=== PATIENT | female | born 1945 | race Caucasian/White ===

== ENCOUNTER 2016-12-02 23:33 | Inpatient (IN) | payer MEDICARE ==
[2016-12-03] MEDS ORDERED: SODIUM CHLORIDE 0.9% 500 ML IV STA (00:34)
[2016-12-03] MEDS ORDERED: IPRATROPIUM-ALBUTEROL 3 ML NEB INHALATION STA (00:34)
[2016-12-03] MEDS ORDERED: PIPERACILLIN-TAZOBACTAM 3.375 GM in DEXTROSE/WATER 1 50ML.BAG IVPB STA (00:36)
[2016-12-03] MEDS ORDERED: methylPREDNISolone SOD SUCCI 125 MG/2 ML VIAL IV STA (00:36)
--- NOTE | 2016-12-03 00:39 | ED ---
General Adult HPI - General Chief complaint: Shortness of Breath Stated complaint: SOB/Weakness Time Seen by Provider: 12/02/16 23:35 Source: patient, EMS, RN notes reviewed Mode of arrival: EMS - History of Present Illness Initial comments: This is a 71-year-old female who presents emergency Department for generalized weakness. Patient states she was seen at [facility] earlier and we received a phone call from a physician stating that they believed she has primary lung cancer with metastatic disease. Patient comes in stating that she is generally weak and his been ongoing for approximately a week getting progressively worse. Patient denies any recent fever or chills. Patient states she does have a cough and is coughing up some sputum but that is pretty chronic for her. Patient states she's been smoking since age 14. Patient denies any chest pain or palpitations. She denies any lightheadedness dizziness or near syncopal episode. Patient denies any abdominal pain patient denies nausea vomiting. Patient states she did have diarrhea couple days ago but she has not had any in the last 2 days. Patient denies any recent injury or trauma. - Related Data Home Medications Medication Instructions Recorded Confirmed Simvastatin [Zocor] 20 mg PO HS 12/02/16 12/02/16 Temazepam [Restoril] 15 mg PO HS 12/02/16 12/02/16 amLODIPine [Norvasc] 10 mg PO DAILY 12/02/16 12/02/16 Allergies Allergy/AdvReac Type Severity Reaction Status Date / Time venom-honey bee Allergy Unknown Verified 12/02/16 23:51 Review of Systems ROS Statement: Those systems with pertinent positive or pertinent negative responses have been documented in the HPI. ROS Other: All systems not noted in ROS Statement are negative. Past Medical History Past Medical History: COPD, Hypertension Additional Past Medical History / Comment(s): SMOKES 1.5 PPD History of Any Multi-Drug Resistant Organisms: None Reported Additional Past Surgical History / Comment(s): MASS ON BREAST BONE REMOVED, UTERINE CA Past Psychological History: No Psychological Hx Reported Smoking Status: Current every day smoker Past Alcohol Use History: None Reported Past Drug Use History: None Reported General Exam - General Exam Comments Initial Comments: GENERAL: Patient is well-developed and well-nourished. Patient is nontoxic and well- hydrated and is in mild distress. Patient's pulse ox on 3 L is about 8046% while she is in bed. ENT: Neck is soft and supple. No significant lymphadenopathy is noted. Oropharynx is clear. Moist mucous membranes. Neck has full range of motion without eliciting any pain. EYES: The sclera were anicteric and conjunctiva were pink and moist. Extraocular movements were intact and pupils were equal round and reactive to light. Eyelids were unremarkable. PULMONARY: Patient has diminished breath sounds throughout with some expiratory wheezing. CARDIOVASCULAR: There is a regular rate and rhythm without any murmurs gallops or rubs. ABDOMEN: Soft and nontender with normal bowel sounds. No palpable organomegaly was noted. There is no palpable pulsatile mass. SKIN: Skin is clear with no lesions or rashes and otherwise unremarkable. NEUROLOGIC: Patient is alert and oriented x3. Cranial nerves II through XII are grossly intact. Motor and sensory are also intact. Normal speech, volume and content. Symmetrical smile. MUSCULOSKELETAL: Normal extremities with adequate strength and full range of motion. No lower extremity swelling or edema. No calf tenderness. LYMPHATICS: No significant lymphadenopathy is noted PSYCHIATRIC: Normal psychiatric evaluation. Course Vital Signs 12/02/16 12/03/16 12/03/16 23:38 00:30 00:52 Temperature 97.9 F Pulse Rate 94 94 84 Respiratory 14 18 Rate Blood Pressure 127/69 147/71 O2 Sat by Pulse 88 L 89 L Oximetry 12/03/16 12/03/16 00:59 01:36 Temperature Pulse Rate 88 91 Respiratory 16 Rate Blood Pressure 143/71 O2 Sat by Pulse 91 L Oximetry Medical Decision Making - Medical Decision Making EKG shows normal sinus rhythm at 91 bpm MD interval 132 QRS is 82 QT interval 356 QTC is 437. Patient's EKG shows some T-wave inversions in leads II, III, and F aVF which with the same on a previous EKG done earlier in the day. Patient had an elevated white count and with the changes on the CAT scan I decided to treat the patient with antibiotics I admitted the patient with Dr. Raymundo consult pulmonary and oncology. - Lab Data Result diagrams: 12/03/16 00:42 12/03/16 00:42 Lab Results 12/03/16 12/03/16 12/03/16 Range/Units 00:00 00:42 00:42 WBC 18.6 H (3.8-10.6) k/uL RBC 4.41 (3.80-5.40) m/uL Hgb 13.6 (11.4-16.0) gm/dL Hct 42.9 (34.0-46.0) % MCV 97.2 (80.0-100.0) fL MCH 30.9 (25.0-35.0) pg MCHC 31.8 (31.0-37.0) g/dL RDW 14.9 (11.5-15.5) % Plt Count 223 (150-450) k/uL Neutrophils % 89 % Lymphocytes % 2 % Monocytes % 6 % Eosinophils % 1 % Basophils % 1 % Neutrophils # 16.6 H (1.3-7.7) k/uL Lymphocytes # 0.4 L (1.0-4.8) k/uL Monocytes # 1.2 H (0-1.0) k/uL Eosinophils # 0.1 (0-0.7) k/uL Basophils # 0.2 (0-0.2) k/uL Sodium (137-145) mmol/L Potassium (3.5-5.1) mmol/L Chloride (98-107) mmol/L Carbon Dioxide (22-30) mmol/L Anion Gap mmol/L BUN (7-17) mg/dL Creatinine (0.52-1.04) mg/dL Est GFR (MDRD) Af Amer (>60 ml/min/1.73 sqM) Est GFR (MDRD) Non-Af (>60 ml/min/1.73 sqM) Glucose (74-99) mg/dL Plasma Lactic Acid Dudley 1.5 (0.7-2.0) mmol/L Calcium (8.4-10.2) mg/dL Total Bilirubin (0.2-1.3) mg/dL AST (14-36) U/L ALT (9-52) U/L Alkaline Phosphatase (38-126) U/L Total Creatine Kinase 55 (30-135) U/L CK-MB (CK-2) 2.0 (0.0-2.4) ng/mL CK-MB (CK-2) Rel Index 3.6 Troponin I 0.036 H* (0.000-0.034) ng/mL Total Protein (6.3-8.2) g/dL Albumin (3.5-5.0) g/dL 01/31/17 Range/Units 00:42 WBC (3.8-10.6) k/uL RBC (3.80-5.40) m/uL Hgb (11.4-16.0) gm/dL Hct (34.0-46.0) % MCV (80.0-100.0) fL MCH (25.0-35.0) pg MCHC (31.0-37.0) g/dL RDW (11.5-15.5) % Plt Count (150-450) k/uL Neutrophils % % Lymphocytes % % Monocytes % % Eosinophils % % Basophils % % Neutrophils # (1.3-7.7) k/uL Lymphocytes # (1.0-4.8) k/uL Monocytes # (0-1.0) k/uL Eosinophils # (0-0.7) k/uL Basophils # (0-0.2) k/uL Sodium 142 (137-145) mmol/L Potassium 3.4 L (3.5-5.1) mmol/L Chloride 104 (98-107) mmol/L Carbon Dioxide 25 (22-30) mmol/L Anion Gap 13 mmol/L BUN 33 H (7-17) mg/dL Creatinine 1.00 (0.52-1.04) mg/dL Est GFR (MDRD) Af Amer >60 (>60 ml/min/1.73 sqM) Est GFR (MDRD) Non-Af 54 (>60 ml/min/1.73 sqM) Glucose 127 H (74-99) mg/dL Plasma Lactic Acid Dudley (0.7-2.0) mmol/L Calcium 9.5 (8.4-10.2) mg/dL Total Bilirubin 1.3 (0.2-1.3) mg/dL AST 112 H (14-36) U/L ALT 148 H (9-52) U/L Alkaline Phosphatase 208 H (38-126) U/L Total Creatine Kinase (30-135) U/L CK-MB (CK-2) (0.0-2.4) ng/mL CK-MB (CK-2) Rel Index Troponin I (0.000-0.034) ng/mL Total Protein 6.7 (6.3-8.2) g/dL Albumin 3.5 (3.5-5.0) g/dL Disposition Clinical Impression: Lung mass, Pneumonia Disposition: ADMITTED IP TO THIS HOSP Time of Disposition: 01:54
[2016-12-03 00:59] LABS: Basophils # (A) 0.2 k/uL (0-0.2); Basophils % (A) 1 %; CH 31.7; CHCM 32.8; Eosinophils # (A) 0.1 k/uL (0-0.7); Eosinophils % (A) 1 %; HCT 42.9 % (34.0-46.0); HDW 2.36; HGB 13.6 gm/dL (11.4-16.0); Luc # (Auto) 0.16; Luc % (Auto) 1; Lymphocytes # (A) 0.4 k/uL (1.0-4.8); Lymphocytes % (A) 2 %; MCH 30.9 pg (25.0-35.0); MCHC 31.8 g/dL (31.0-37.0); MCV 97.2 fL (80.0-100.0); Mean Platelet Volume 8.2; Monocytes # (A) 1.2 k/uL (0-1.0); Monocytes % (A) 6 %; Neutrophils # (A) 16.6 k/uL (1.3-7.7); Neutrophils % (A) 89 %; RBC 4.41 m/uL (3.80-5.40); RDW 14.9 % (11.5-15.5); WBC 18.6 k/uL (3.8-10.6); WBC (Perox) 18.93
[2016-12-03 01:10] LABS: ALT 148 U/L (9-52); AST 112 U/L (14-36); Alkaline Phosphatase 208 U/L (38-126); Anion Gap 13 mmol/L; Blood Urea Nitrogen 33 mg/dL (7-17); Calcium 9.5 mg/dL (8.4-10.2); Carbon Dioxide 25 mmol/L (22-30); Chloride 104 mmol/L (98-107); Glucose 127 mg/dL (74-99); Non-African American GFR(MDRD) 54 (>60 ml/min/1.73 sqM); Potassium 3.4 mmol/L (3.5-5.1); Sodium 142 mmol/L (137-145); Total Bilirubin 1.3 mg/dL (0.2-1.3); Total Protein 6.7 g/dL (6.3-8.2)
[2016-12-03] MEDS ORDERED: SODIUM CHLORIDE 0.9% 500 ML IV ONE (01:29)
[2016-12-03 01:34] LABS: Troponin I 0.036 ng/mL (0.000-0.034)
[2016-12-03] MEDS ORDERED: PNEUMONIA PROTOCOL UTILIZED 1 EACH MISC PO PRN (01:55)
[2016-12-03] MEDS ORDERED: LEVOFLOXACIN 750MG-D5W PMX 750 MG in DEXTROSE/WATER 1 150ML.BAG IVPB STA (01:55)
[2016-12-03] MEDS ORDERED: HYDROcodone/APAP 5-325MG 1 EACH TAB PO PRN (03:47)
[2016-12-03] MEDS: IPRATROPIUM-ALBUTEROL 3 ML NEB INHALATION PRN (04:00)
[2016-12-03] MEDS: ALPRAZolam 0.25 MG TAB PO PRN (04:09)
[2016-12-03 06:44] LABS: Glucose,Whole Blood 126 mg/dL (75-99)
[2016-12-03] MEDS: INSULIN LISPRO (humaLOG) 300 UNIT/3 ML VIAL SQ SCH ×4 (06:54→21:54)
[2016-12-03] MEDS: methylPREDNISolone SOD SUCCI 125 MG/2 ML VIAL IV SCH ×4 (06:56→22:46)
[2016-12-03] MEDS ORDERED: PIPERACILLIN-TAZOBACTAM 3.375 GM in DEXTROSE/WATER 1 50ML.BAG IVPB SCH (08:00)
[2016-12-03] MEDS ORDERED: amLODIPine 10 MG TAB PO SCH (09:00)
[2016-12-03] MEDS ORDERED: RX INFO: IV CONTRAST WAS GIVEN 1 EACH MISC MISCELLANE PRN (09:25)
[2016-12-03] MEDS: IOHEXOL 350 MG/ML 25 ML BOTTLE (ORAL USE) PO PRN ×2 (10:03→11:01)
[2016-12-03 11:35] VITALS: BMI 20.6
--- NOTE | 2016-12-03 11:36 | P.CNPUL ---
History of Present Illness Consult date: 12/03/16 Reason for consult: lung mass History of present illness: This is a 71-year-old female patient was initially taken to [facility] for generalized body weakness and some shortness of breath. As part of further investigation a CAT scan of the chest was done that showed a left lower lobe/left perihilar pulmonary mass along with mediastinal lymphadenopathy and multifocal left lower lobe lung as pulmonary infiltrates and nodules. There is narrowing of the left lower lobe bronchus. This was very suspicious for an underlying malignancy. In addition, the CAT scan showed a large axillary lymph node and multiple subcutaneous nodules of the breast and superficial to the left scapula raising the concern for possible metastases. There was also some abdominal lymphadenopathy noted. Based on all this, the patient was transferred to [facility] for further investigation with the intention of her having a biopsy for tissue confirmation. 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 She also has a remote history of uterine cancer and she is post-hysterectomy. She smokes a one half pack of cigarettes a day and she has an underlying COPD. Clinically the patient remains very weak. Her appetite is poor. She has no weight loss. She was having exertional dyspnea. No hemoptysis.On examination, the patient was found to have firm nodes or masses over the anterior abdominal wall and I couldn't palpate at least 3 large firm masses that are stuck to the abdominal wall and the abdomen apparently growing over the past few weeks. The patient also has a right axillary mass/lymph node that can be palpated. 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 History of Any Multi-Drug Resistant Organisms: None Reported Past Surgical History: Hysterectomy Additional Past Surgical History / Comment(s): Mediastinal mass removal possibly resection of a thymoma and hysterectomy Additional Past Anesthesia/Blood Transfusion Reaction / Comment(s): no history blood transfusion Past Psychological History: No Psychological Hx Reported Smoking Status: Current every day smoker (1.5 pack per day and she has been smoking since the age 14, no alcoholism and no IVDA) Past Alcohol Use History: None Reported Past Drug Use History: None Reported - Past Family History Father Family Medical History: No Reported History Mother Family Medical History: Unable to Obtain Medications and Allergies Home Medications Medication Instructions Recorded Confirmed Type Simvastatin [Zocor] 20 mg PO HS 12/02/16 12/02/16 History Temazepam [Restoril] 15 mg PO HS 12/02/16 12/02/16 History amLODIPine [Norvasc] 10 mg PO DAILY 12/02/16 12/02/16 History Allergies Allergy/AdvReac Type Severity Reaction Status Date / Time venom-honey bee Allergy Unknown Verified 12/02/16 23:51 Physical Exam Vitals: Vital Signs Temp Pulse Pulse Resp BP BP Pulse Ox 12/03/16 08:00 97.0 F L 82 16 133/68 96 12/03/16 04:12 80 12/03/16 04:00 88 90 16 12/03/16 02:46 95 16 148/79 96 12/03/16 02:09 97.3 F L 90 16 125/81 92 L Intake and Output 12/02/16 12/03/16 12/03/16 22:59 06:59 14:59 Intake Total 120 Output Total 1200 Balance -1200 120 Intake: Oral 120 Output: Urine 1200 Other: Voiding Method Bedside Commode Bedside Commode # Voids 0 Weight 51.2 kg Head exam was generally normal. There was no scleral icterus or corneal arcus. Mucous membranes were moist.Neck was supple and without jugular venous distension, thyromegaly, or carotid bruits. Carotids were easily palpable bilaterally. There was no adenopathy. The patient has a firm right axillary lymph node that can be easily palpated that is measuring approximately 2 cm in size. Lung sounds are diminished bilaterally and there is no wheezes overall currently crackles.Cardiac exam revealed the PMI to be normally situated and sized. The rhythm was regular and no extrasystoles were noted during several minutes of auscultation. The first and second heart sounds were normal and physiologic splitting of the second heart sound was noted. There were no murmurs , rubs, clicks, or gallops. Abdominal wall reveals firm masses that are as large as 3-4 cm in size and they are nonpainful urine stuck over the anterior abdominal wall and these are probably metastatic lesions to the abdominal wall. The patient has no significant organomegaly. No direct tenderness. No rebound tenderness or guarding.Examination of the extremities revealed easily palpable radial, femoral and pedal pulses. There was no cyanosis, clubbing or edema. Results - Laboratory Findings CBC and BMP: 12/03/16 00:42 12/03/16 00:42 Abnormal lab findings: Abnormal Labs 12/03/16 06:43 POC Glucose (mg/dL) 126 H - Diagnostic Findings CT scan - chest: image reviewed Assessment and Plan Plan: Impression 1 metastatic cancer probably of a lung origin and I suspect this may be probably a small cell type. The patient has a left infrahilar mass with mediastinal lymphadenopathy, axillary lymphadenopathy and anterior abdominal wall wall masses that are quite multiple and accessible for biopsy. 2 COPD 3 questionable history of thymoma, status post resection 4 uterine cancer status post hysterectomy 5 hypertension 6 hyperlipidemia 7 generalized debility, weakness, difficulty with mobility, probably all related to underlying metastatic carcinoma Plan We will proceed with a surgical consultation to obtain a tissue diagnosis. The most accessible lesions on the 1 over the anterior abdominal wall and I will ask the surgeon to resect one of these lesions to establish tissue diagnosis. The patient will have also CAT scan of the abdomen and pelvis. Oncology consultation. We'll continue to follow.
[2016-12-03 11:47] LABS: Glucose,Whole Blood 187 mg/dL (75-99)
[2016-12-03 12:18] LABS: Hemoglobin A1C 5.8 % (4.2-6.1)
--- NOTE | 2016-12-03 12:36 | CT ---
EXAMINATION TYPE: CT brain w con DATE OF EXAM: 12/03/2016 12:20 PM COMPARISON: NONE HISTORY: Lung mass, mets CT DLP: 1073 mGycm Automated exposure control for dose reduction was used. CONTRAST: CT scan of the head is performed with IV Contrast, patient injected with 100 ml mL of Omnipaque 300. FINDINGS: There is no abnormal enhancing mass or midline shift identified. Moderate degenerative change. Areas of low attenuation within the white matter are nonspecific but most typical remote microvascula r ischemia. No enhancing mass. There is linear enhancement within the right parietal lobe axial image 33 which may be gyral. Cannot exclude a tiny area of hemorrhage however this is felt less likely. There also appears be a nodular area of enhancement near the corpus callosum within the right occipit al lobe measuring 7 mm. This could represent a meningioma or metastasis. Changes of chronic mastoiditis are noted and sinusitis. IMPRESSION: 1. 7 mm nodular area of enhancement within the right occipital lobe adjacent to the splenium of the c orpus callosum. This could be extradural represent small meningioma or metastasis. Additionally there is vague linear enhancement in the right parietal lobe image 33. This could be meningeal or leptomen ingeal. See above. Recommend MRI to assess for possible underlying metastases.
--- NOTE | 2016-12-03 12:46 | CT ---
EXAMINATION TYPE: CT abdomen pelvis w con DATE OF EXAM: 12/03/2016 12:20 PM COMPARISON: NONE HISTORY: Lung mass, mets CT DLP: 887 mGycm Automated exposure control for dose reduction was used. CONTRAST: CT scan of the abdomen pelvis is performed with IV Contrast, patient injected with 80 ml mL of Visipa que 320. FINDINGS- LUNG BASES-near the diaphragm there appears be a small amount of pericardial fluid. Subsegmental atel ectasis at both lung bases with tiny effusions. LIVER/GB-there are numerous ill-defined areas of nodular enhancement throughout the liver involving a ll lobes and segments. The largest within the left lobe measures approximately 3 x 3 cm and within th e right lobe measures approximately 3.8 x 3.5 cm.. PANCREAS- No gross abnormality is seen. SPLEEN- No gross abnormality is seen. ADRENALS- No gross abnormality is seen. KIDNEYS/BLADDER-renal cortex is lobulated bilaterally. There is a 1 cm hypodense lesion which does no t meet the criteria of simple cyst within the left kidney.. BOWEL- no bowel dilatation. Normal appendix. LYMPH NODES-shotty adenopathy is seen in the periaortic region image 20 to the left there appear to b e additional areas of nodular enhancement along the spleen suspicious for adenopathy measuring 1 cm. Adenopathy within the raj hepatis is also suspected. Short axis measurement of 8 mm. Head of the pa ncreas is prominent OSSEOUS STRUCTURES-multilevel severe degenerative disc disease and facet arthropathy with grade 1 ant erolisthesis L4 relative to L5. Foraminal encroachment and canal stenosis suspected. OTHER- there are numerous subcutaneous enhancing nodules along the anterior abdominal wall with the largest measuring 2 cm suspicious for metastases. One anterior margin of the liver on axial image 25 there is a 1.5 cm enhancing nodule suspicious for a peritoneal implant. There is a small amount of ascites adjacent to the liver. Within the left adnexa there is a cystic le eliecer measuring 2.7 cm. Uterus is absent. If the ovary was left behind postoperatively could represent a cyst of the ovary otherwise consider cystic dilation of the fallopian tube remnant or paraovarian cyst. There is extensive atherosclerotic change of the aorta with significant stenosis suspected invo lving the SMA and celiac artery correlate clinically. There is localized ectasia of the abdominal aorta focally. IMPRESSION- 1. Numerous findings suggestive of widespread metastases. Hepatic and intra-abdominal as well as subc utaneous metastases are seen diffusely as discussed above. See above. 2. Prominence of the pancreatic head without evidence of discrete mass correlate clinically.
[2016-12-03] MEDS ORDERED: LIDOCAINE 2% INJ 20 MG/ML (20 ML MDV) ONE (13:10)
--- NOTE | 2016-12-03 13:48 | P.GSCN ---
History of Present Illness Consult date: 12/03/16 Reason for Consult: Abdominal wall mass History of present illness: Patient was admitted to the hospital with a lung mass in subcutaneous nodules. She has a history of previous smoking. We're asked to see this patient for biopsy. She says these masses have been present over the last 3-4 weeks and increasing in size. They are painful at times. 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 History of Any Multi-Drug Resistant Organisms: None Reported Past Surgical History: Hysterectomy Additional Past Surgical History / Comment(s): Mediastinal mass removal possibly resection of a thymoma and hysterectomy Additional Past Anesthesia/Blood Transfusion Reaction / Comm: no history blood transfusion Past Psychological History: No Psychological Hx Reported Smoking Status: Current every day smoker (1.5 pack per day and she has been smoking since the age 14, no alcoholism and no IVDA) Past Alcohol Use History: None Reported Past Drug Use History: None Reported - Past Family History Father Family Medical History: No Reported History Mother Family Medical History: Unable to Obtain Medications and Allergies Home Medications Medication Instructions Recorded Confirmed Type Simvastatin [Zocor] 20 mg PO HS 12/02/16 12/02/16 History Temazepam [Restoril] 15 mg PO HS 12/02/16 12/02/16 History amLODIPine [Norvasc] 10 mg PO DAILY 12/02/16 12/02/16 History Allergies Allergy/AdvReac Type Severity Reaction Status Date / Time venom-honey bee Allergy Unknown Verified 12/02/16 23:51 Surgical - Exam Vital Signs Temp Pulse Resp BP Pulse Ox 97.9 F 94 14 127/69 88 L 12/02/16 23:38 12/02/16 23:38 12/02/16 23:38 12/02/16 23:38 12/02/16 23:38 Physical exam: General: Elderly white female somewhat malnourished appearing HEENT: Normocephalic, sclerae nonicteric Abdomen: Nontender, nondistended, multiple small subcutaneous nodules largest one present in the midabdomen supra umbilical measuring 3 cm Extremities: No edema, right axillary nodule Neuro: Alert and oriented Results - Labs 12/03/16 00:42 12/03/16 00:42 Abnormal Lab Results - Last 24 Hours (Table) 12/03/16 12/03/16 Range/Units 06:43 11:34 POC Glucose (mg/dL) 126 H 187 H (75-99) mg/dL Assessment and Plan (1) Subcutaneous nodules Narrative/Plan: Will proceed with biopsy at the bedside. Status: Acute
--- NOTE | 2016-12-03 13:49 | P.PCN ---
Date of Procedure: 12/03/16 Procedure(s) Performed: PREOPERATIVE DIAGNOSIS: Abdominal wall nodule POSTOPERATIVE DIAGNOSIS: Same PROCEDURE: Punch biopsy SURGEON: Derick EBL: 1 mL ANESTHESIA: Local COMPLICATIONS: None OPERATIVE PROCEDURE: The skin was prepped with Betadine. The skin was localized with 1% lidocaine. A 3 mm punch biopsy was taken. The mass was necrotic. Portions of the tissue were sent in formalin to lab. The incision site was closed using a single 4-0 nylon stitch. DISPOSITION: Stable
[2016-12-03 14:05] LABS: Appearance,Urine Clear (Clear); Bilirubin,Urine Negative (Negative); Glucose,Urine (UA) 2+ (Negative); Ketones,Urine Negative (Negative); Leukocyte Esterase,Urine Moderate (Negative); Mucus,Urine Rare /hpf; Nitrite,Urine Negative (Negative); PH, Urine 6.5 (5.0-8.0); Particle Count 2711; Protein,Urine Trace (Negative); RBC,Urine 3 /hpf (0-5); Squamous Epithelial Cell,Urine 2 /hpf (0-4); UA Billing (MACRO vs. MICRO) MICRO; Urobilinogen,Urine <2.0 mg/dL (<2.0); WBC,Urine 11 /hpf (0-5)
--- NOTE | 2016-12-03 16:46 | P.CONS ---
History of Present Illness - Reason for Consult Consult date: 12/03/16 lung mass Requesting physician: Morgan Rubio - Chief Complaint SOB - History of Present Illness Pt is a very pleasant 71 year old female who has had progressive SOB for 1 year, worse the last month, she was recently seen at [facility] and states she was called and told to come to the hospital as she may have a spread cancer. Pt denies wt. loss, she states she has her appetite back, denies dysphagia, she was not on O2 at home, she is currently comfortable with O2 on, denies chest pain, pleuritic chest pain, nausea, abd pain or bloating, acute changes in bowel or bladder habits, she is independent in ADLs. She has had skin nodules, started few months ago, they are not painful. SHe has a history of uterine cancer treated 40 years ago with surgery, no chemo or radiation, she had a skin cancer on her legs about 7-8 years ago, treated with topicals, and she had a cancer "scrapped" off of her sternum about 5 years ago. She denies any other acute changes in her health. Review of Systems All systems: negative Constitutional: Reports as per HPI Past Medical History Past Medical History: Cancer, COPD, Hypertension, Pneumonia Additional Past Medical History / Comment(s): SMOKES 1.5 PPD History of Any Multi-Drug Resistant Organisms: None Reported Past Surgical History: Hysterectomy Additional Past Surgical History / Comment(s): MASS ON BREAST BONE REMOVED, UTERINE CA Additional Past Anesthesia/Blood Transfusion Reaction / Comm: no history blood transfusion Past Psychological History: No Psychological Hx Reported Smoking Status: Current every day smoker Past Alcohol Use History: None Reported Past Drug Use History: None Reported - Past Family History Father Family Medical History: No Reported History Mother Family Medical History: Unable to Obtain Medications and Allergies Home Medications Medication Instructions Recorded Confirmed Type Simvastatin [Zocor] 20 mg PO HS 12/02/16 12/02/16 History Temazepam [Restoril] 15 mg PO HS 12/02/16 12/02/16 History amLODIPine [Norvasc] 10 mg PO DAILY 12/02/16 12/02/16 History Allergies Allergy/AdvReac Type Severity Reaction Status Date / Time venom-honey bee Allergy Unknown Verified 12/02/16 23:51 Physical Exam Vitals: Vital Signs Temp Pulse Pulse Resp BP BP Pulse Ox 12/03/16 04:12 80 12/03/16 04:00 88 90 16 12/03/16 02:46 95 16 148/79 96 12/03/16 02:09 97.3 F L 90 16 125/81 92 L Intake and Output 12/02/16 12/03/16 12/03/16 22:59 06:59 14:59 Intake Total 120 Output Total 1200 Balance -1200 120 Intake: Oral 120 Output: Urine 1200 Other: Voiding Method Bedside Commode # Voids 0 Weight 51.2 kg - Constitutional General appearance: cooperative, mild distress, thin - EENT Eyes: anicteric sclerae, normal appearance ENT: normal oropharynx - Neck Neck: lymphadenopathy - Respiratory Respiratory: bilateral: wheezing (audible) - Cardiovascular Heart sounds: normal: S1, S2 - Gastrointestinal General gastrointestinal: soft Localized gastrointestinal: tender: RUQ, RLQ - Integumentary multiple skin nodules, mobile, smooth contour, not painful, left clavicle, multiple on abd, 2.5-3cm. Integumentary: pale - Neurologic Neurologic: CNII-XII intact - Musculoskeletal Musculoskeletal: strength equal bilaterally - Psychiatric difficulty recalling personal medical history Psychiatric: A&O x's 3, appropriate affect, intact judgment & insight Results CBC & Chem 7: 12/03/16 00:42 12/03/16 00:42 Labs: Abnormal Lab Results - Last 24 Hours (Table) 12/03/16 Range/Units 06:43 POC Glucose (mg/dL) 126 H (75-99) mg/dL Comments: paper chart and EMR reviewed CT chest report from [facility] reviewed Assessment and Plan (1) Subcutaneous nodules Narrative/Plan: Surgery consulted for excisional biopsy, await pathology Status: Acute (2) Lung mass Narrative/Plan: Pulmonary consulted, await recommendations re: biopsy Status: Acute Plan: Pt presentation is unique, 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 Recommendation if for both an excisional biopsy of one of the SQ nodules as well as lung biopsy as pt may have 2 primaries. Will await Surgical and Pulmonary consults.
[2016-12-03 17:17] LABS: Glucose,Whole Blood 115 mg/dL (75-99)
--- NOTE | 2016-12-03 20:41 | HP ---
DATE OF ADMISSION: Patient is a 71-year-old transfer from [employer] who presented with shortness of breath. Patient denied any significant amount of cough. Patient is unable to cough up anything. Patient had a left lower lobe perihilar pulmonary mass, mediastinal lymphadenopathy, because of which patient underwent CT scan of the abdomen and pelvis here which showed multiple metastatic lesions consistent with metastatic disease. Patient denied any fever or chills. Patient had leukocytosis. Denied any fever. Patient is on Zosyn, levofloxacin. I believe it is not necessary ( ) at this point of time patient denied any dysuria. Patient had significant lymphadenopathy, abdominal as well as axillary lymphadenopathy, because of which patient underwent biopsy of those lymph nodes ( ) was done which showed a couple lesions, one in the parietal lobe and one in the right occipital lobe. Patient denied any symptoms of visual problems, although patient does have generalized weakness. Denied any focal weakness. Patient received systemic steroids here. Patient is on 8 liters of oxygen; does not use any oxygen at home. Patient saw a physician for the first time a few days ago. The abdominal masses and axillary mass are not hard but firm. REVIEW OF SYSTEMS: CONSTITUTIONAL: No fever, no malaise, no fatigue. HEENT: No recent visual problems or hearing problems. Denied any sore throat. CARDIOVASCULAR: No chest pain, orthopnea, PND, no palpitations, no syncope. PULMONARY: As described in HPI. GASTROINTESTINAL: No diarrhea, no nausea, no vomiting, no abdominal pain. Normoactive bowel sounds. NEUROLOGICAL: No headaches, no weakness, no numbness. HEMATOLOGICAL: Denies any bleeding or petechiae. GENITOURINARY: Denies any burning micturition, frequency, or urgency. MUSCULOSKELETAL/RHEUMATOLOGICAL: Denies any joint pain, swelling, or any muscle pain. ENDOCRINE: Denies any polyuria or polydipsia. The rest of the 14 point review of systems is negative. Past medical history is significant for: 1. Uterine cancer. 2. COPD. 3. Hypertension. 4. Hyperlipidemia. 5. Thymoma. 6. Patient had a mediastinal mass that was dissected. PAST SURGICAL HISTORY: Hysterectomy. FAMILY HISTORY: Denied any family history of hypertension or diabetes mellitus. HOME MEDICATIONS: 1. Simvastatin. 2. Temazepam. 3. Amlodipine. ALLERGIES: BEE VENOM. PHYSICAL EXAMINATION: VITAL SIGNS: Temperature 97.0, pulse of 82, respiratory rate of 16. Blood pressure is 133/68. Saturating at 96% on room air. GENERAL: The patient is alert and oriented x3, not in any acute distress. Well developed, well nourished. HEENT: Pupils are round and equally reacting to light. EOMI. No scleral icterus. No conjunctival pallor. Normocephalic, atraumatic. No pharyngeal erythema. No thyromegaly. CARDIOVASCULAR: S1 and S2 present. No murmurs, rubs, or gallops. PULMONARY: The patient has fairly good air entry in bilateral lung rubalcava. I did not hear any wheezing or crackles that I can appreciate. Patient has some firm nodes in the superficial abdominal wall ( ) big firm mass in the right axilla. ABDOMEN: Soft, nontender, nondistended, normoactive bowel sounds. No palpable organomegaly. MUSCULOSKELETAL: No joint swelling or deformity. EXTREMITIES: No cyanosis, clubbing, or pedal edema. NEUROLOGICAL: Gross neurological examination did not reveal any focal deficits. SKIN: No rashes. LABORATORY DATA: CBC, CMP are abnormal for elevated WBC count of 18,600, ( ) potassium of 3.4. Abdominal CT as mentioned above. Abdominal CT is also consistent with possibility of pancreatic head lesion. ASSESSMENT AND PLAN: 1. Shortness of breath, probably due to chronic obstructive pulmonary disease exacerbation. Patient probably has acute hypercapnic respiratory failure. Patient is on systemic steroids ( ) 2. Possible metastatic cancer. Primary is unknown. Awaiting biopsy. Patient underwent biopsy of the subcutaneous lesions. 3. 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 Oncology was consulted. Patient is already on systemic steroids, because of which I ( ) start her on Decadron at this point of time, although patient does not have any symptoms. 4. Generalized weakness and cachexia from probable cancer and metastatic disease. 5. History of thymoma. 6. Hypertension. 7. Hyperlipidemia, for which I will go ahead and continue home medications for above-mentioned chronic medical problems. 8 Mild protein calorie malnutrition. My suspicion is low for a pneumonic process, because of which I will continue Zosyn. After discussing with Pulmonary, probably levofloxacin can be discontinued as well. For hypokalemia, potassium supplements. MTDD
[2016-12-03] MEDS ORDERED: TEMAZEPAM 15 MG CAP PO SCH (21:00)
[2016-12-03 21:11] LABS: Glucose,Whole Blood 158 mg/dL (75-99)
[2016-12-03] MEDS ORDERED: POTASSIUM CHLORIDE ER 20 MEQ TAB.ER PO STA (21:32)
[2016-12-03] MEDS: ATORVASTATIN 10 MG TAB PO SCH (21:53)
[2016-12-03] MEDS ORDERED: POTASSIUM CHLORIDE ER 20 MEQ TAB.ER PO ONE (23:00)
[2016-12-04] MEDS: INSULIN LISPRO (humaLOG) 300 UNIT/3 ML VIAL SQ SCH ×4 (06:06→21:16)
[2016-12-04 06:07] LABS: Glucose,Whole Blood 113 mg/dL (75-99)
[2016-12-04] MEDS: methylPREDNISolone SOD SUCCI 125 MG/2 ML VIAL IV SCH ×3 (06:18→17:22)
[2016-12-04 06:19] LABS: CH 31.1; CHCM 31.3; HCT 36.3 % (34.0-46.0); HGB 11.5 gm/dL (11.4-16.0); MCH 31.6 pg (25.0-35.0); MCHC 31.5 g/dL (31.0-37.0); MCV 100.1 fL (80.0-100.0); Macrocytosis Slight; Mean Platelet Volume 7.9; RBC 3.63 m/uL (3.80-5.40); WBC 18.1 k/uL (3.8-10.6)
[2016-12-04 06:41] LABS: Anion Gap 6 mmol/L; Blood Urea Nitrogen 24 mg/dL (7-17); Calcium 8.8 mg/dL (8.4-10.2); Carbon Dioxide 28 mmol/L (22-30); Chloride 108 mmol/L (98-107); Glucose 114 mg/dL (74-99); Non-African American GFR(MDRD) >60 (>60 ml/min/1.73 sqM); Potassium 5.1 mmol/L (3.5-5.1); Sodium 142 mmol/L (137-145)
[2016-12-04] MEDS ORDERED: LEVOFLOXACIN 750MG-D5W PMX 750 MG in DEXTROSE/WATER 1 150ML.BAG IVPB SCH (08:00)
[2016-12-04] MEDS: IPRATROPIUM-ALBUTEROL 3 ML NEB INHALATION PRN (09:14)
[2016-12-04 11:34] LABS: Glucose,Whole Blood 155 mg/dL (75-99)
--- NOTE | 2016-12-04 11:52 | P.PN ---
Subjective Principal diagnosis: Abdominal wall nodule Patient without new complaints. Denies abdominal pain. Shortness of breath is improved Objective - Vital Signs Vital signs: Vital Signs Temp 97.0 F L 12/04/16 08:00 Pulse 76 12/04/16 09:25 Resp 22 12/04/16 08:00 BP 100/58 12/04/16 08:00 Pulse Ox 98 12/04/16 08:00 Intake & Output 12/03/16 12/04/16 12/04/16 18:59 06:59 18:59 Intake Total 1690 100 630 Output Total 90 690 Balance 1600 -590 630 Weight 51.2 kg 51.4 kg Intake: Intake, IV Titration 210 150 Amount Levofloxacin 750Mg-D5w 150 150 Pmx 750 mg In Dextrose/ Water 1 150ml.bag @ 100 mls/hr IVPB Q24H [facility] Rx#: [id number] Piperacillin-Tazobactam 3 60 .375 gm In Dextrose/Water 1 50ml.bag @ 12.5 mls/hr IVPB [facility] Rx#: [id number] Oral 1480 100 480 Output: Urine 90 690 Other: Voiding Method Bedside Commode Bedside Commode Bedside Commode # Voids 0 1 # Bowel Movements 0 0 0 - Exam Abdomen: Soft, nondistended, dressing intact, no bleeding - Labs CBC & Chem 7: 12/04/16 05:54 12/04/16 05:54 Labs: Abnormal Lab Results - Last 24 Hours (Table) 12/03/16 12/03/16 12/03/16 Range/Units 12:00 16:50 21:10 WBC (3.8-10.6) k/uL RBC (3.80-5.40) m/uL MCV (80.0-100.0) fL Chloride (98-107) mmol/L BUN (7-17) mg/dL Glucose (74-99) mg/dL POC Glucose (mg/dL) 115 H 158 H (75-99) mg/dL Ur Specific [place] 1.050 H (1.001-1.035) Urine Protein Trace H (Negative) Urine Glucose (UA) 2+ H (Negative) Ur Leukocyte Esterase Moderate H (Negative) Urine WBC 11 H (0-5) /hpf Urine Mucus Rare H (None) /hpf 12/04/16 12/04/16 12/04/16 Range/Units 05:54 05:54 05:58 WBC 18.1 H (3.8-10.6) k/uL RBC 3.63 L (3.80-5.40) m/uL MCV 100.1 H (80.0-100.0) fL Chloride 108 H (98-107) mmol/L BUN 24 H (7-17) mg/dL Glucose 114 H (74-99) mg/dL POC Glucose (mg/dL) 113 H (75-99) mg/dL Ur Specific [place] (1.001-1.035) Urine Protein (Negative) Urine Glucose (UA) (Negative) Ur Leukocyte Esterase (Negative) Urine WBC (0-5) /hpf Urine Mucus (None) /hpf 12/04/16 Range/Units 11:33 WBC (3.8-10.6) k/uL RBC (3.80-5.40) m/uL MCV (80.0-100.0) fL Chloride (98-107) mmol/L BUN (7-17) mg/dL Glucose (74-99) mg/dL POC Glucose (mg/dL) 155 H (75-99) mg/dL Ur Specific [place] (1.001-1.035) Urine Protein (Negative) Urine Glucose (UA) (Negative) Ur Leukocyte Esterase (Negative) Urine WBC (0-5) /hpf Urine Mucus (None) /hpf Assessment and Plan (1) Subcutaneous nodules Narrative/Plan: Await final pathology from recent punch biopsy Status: Acute
--- NOTE | 2016-12-04 14:46 | XR ---
EXAMINATION TYPE: XR chest 2V DATE OF EXAM: 12/04/2016 2:40 PM COMPARISON: Chest x-ray September 30, 2010. Outside chest x-ray and CT chest December 02, 2016 HISTORY: Pneumonia progress study TECHNIQUE: Frontal and lateral views of the chest are obtained. FINDINGS: Sternal wires and mediastinal clips are redemonstrated. There is underlying emphysematous c hange. There is suspicious left hilar masslike consolidation worrisome for neoplasm. There are new sm all bilateral pleural effusions with blunting of posterior costophrenic angles. No pneumothorax is se en bilaterally. Cardiac silhouette size is stable and within normal limits with atherosclerotic thora cic aorta. Osseous structures are demineralized. IMPRESSION: Chronic emphysematous change with new tiny bilateral pleural effusions. Worrisome left hilar masslike consolidation in which neoplasm needs to be favored.
--- NOTE | 2016-12-04 15:07 | P.PN ---
Subjective This is a 71-year-old female patient was initially taken to [facility] for generalized body weakness and some shortness of breath. As part of further investigation a CAT scan of the chest was done that showed a left lower lobe/left perihilar pulmonary mass along with mediastinal lymphadenopathy and multifocal left lower lobe lung as pulmonary infiltrates and nodules. There is narrowing of the left lower lobe bronchus. This was very suspicious for an underlying malignancy. In addition, the CAT scan showed a large axillary lymph node and multiple subcutaneous nodules of the breast and superficial to the left scapula raising the concern for possible metastases. There was also some abdominal lymphadenopathy noted. Based on all this, the patient was transferred to [facility] for further investigation with the intention of her having a biopsy for tissue confirmation. 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 She also has a remote history of uterine cancer and she is post-hysterectomy. She smokes a one half pack of cigarettes a day and she has an underlying COPD. Clinically the patient remains very weak. Her appetite is poor. She has no weight loss. She was having exertional dyspnea. No hemoptysis.On examination, the patient was found to have firm nodes or masses over the anterior abdominal wall and I couldn't palpate at least 3 large firm masses that are stuck to the abdominal wall and the abdomen apparently growing over the past few weeks. The patient also has a right axillary mass/lymph node that can be palpated. On 12/04/2016 the patient is being seen in follow-up. As suspected the patient has metastatic carcinoma and we have recommended biopsy of the abdominal masses. The patient underwent a punch biopsy of the mass at the bedside today by the general surgeon. The final path is still pending. Meanwhile the patient does not have any major surgery distress pH is having some late lunch at this point. Hemodynamically stable. No other significant events otherwise over the past 24 hours. We are still waiting for the biopsy. I think the patient can be transferred to oncology floor. Objective - Vital Signs Vital signs: Vital Signs Temp 97.9 F 12/04/16 12:00 Pulse 88 12/04/16 12:00 Resp 18 12/04/16 12:00 BP 99/52 12/04/16 12:00 Pulse Ox 100 12/04/16 12:00 Intake & Output 12/03/16 12/04/16 12/04/16 18:59 06:59 18:59 Intake Total 1690 100 867 Output Total 90 690 Balance 1600 -590 867 Weight 51.2 kg 51.4 kg Intake: Intake, IV Titration 210 150 Amount Levofloxacin 750Mg-D5w 150 150 Pmx 750 mg In Dextrose/ Water 1 150ml.bag @ 100 mls/hr IVPB Q24H [facility] Rx#: [id number] Piperacillin-Tazobactam 3 60 .375 gm In Dextrose/Water 1 50ml.bag @ 12.5 mls/hr IVPB ONCE [facility] Rx#: [id number] Oral 1480 100 717 Output: Urine 90 690 Other: Voiding Method Bedside Commode Bedside Commode Bedside Commode # Voids 0 1 # Bowel Movements 0 0 0 - Exam Head exam was generally normal. There was no scleral icterus or corneal arcus. Mucous membranes were moist.Neck was supple and without jugular venous distension, thyromegaly, or carotid bruits. Carotids were easily palpable bilaterally. There was no adenopathy. The patient has a firm right axillary lymph node that can be easily palpated that is measuring approximately 2 cm in size. Lung sounds are diminished bilaterally and there is no wheezes overall currently crackles.Cardiac exam revealed the PMI to be normally situated and sized. The rhythm was regular and no extrasystoles were noted during several minutes of auscultation. The first and second heart sounds were normal and physiologic splitting of the second heart sound was noted. There were no murmurs , rubs, clicks, or gallops. Abdominal wall reveals firm masses that are as large as 3-4 cm in size and they are nonpainful urine stuck over the anterior abdominal wall and these are probably metastatic lesions to the abdominal wall. The patient has no significant organomegaly. No direct tenderness. No rebound tenderness or guarding.Examination of the extremities revealed easily palpable radial, femoral and pedal pulses. There was no cyanosis, clubbing or edema. - Labs CBC & Chem 7: 12/04/16 05:54 12/04/16 05:54 Labs: Abnormal Lab Results - Last 24 Hours (Table) 12/03/16 12/03/16 12/03/16 Range/Units 12:00 16:50 21:10 WBC (3.8-10.6) k/uL RBC (3.80-5.40) m/uL MCV (80.0-100.0) fL Chloride (98-107) mmol/L BUN (7-17) mg/dL Glucose (74-99) mg/dL POC Glucose (mg/dL) 115 H 158 H (75-99) mg/dL Ur Specific [place] 1.050 H (1.001-1.035) Urine Protein Trace H (Negative) Urine Glucose (UA) 2+ H (Negative) Ur Leukocyte Esterase Moderate H (Negative) Urine WBC 11 H (0-5) /hpf Urine Mucus Rare H (None) /hpf 12/04/16 12/04/16 12/04/16 Range/Units 05:54 05:54 05:58 WBC 18.1 H (3.8-10.6) k/uL RBC 3.63 L (3.80-5.40) m/uL MCV 100.1 H (80.0-100.0) fL Chloride 108 H (98-107) mmol/L BUN 24 H (7-17) mg/dL Glucose 114 H (74-99) mg/dL POC Glucose (mg/dL) 113 H (75-99) mg/dL Ur Specific [place] (1.001-1.035) Urine Protein (Negative) Urine Glucose (UA) (Negative) Ur Leukocyte Esterase (Negative) Urine WBC (0-5) /hpf Urine Mucus (None) /hpf 12/04/16 Range/Units 11:33 WBC (3.8-10.6) k/uL RBC (3.80-5.40) m/uL MCV (80.0-100.0) fL Chloride (98-107) mmol/L BUN (7-17) mg/dL Glucose (74-99) mg/dL POC Glucose (mg/dL) 155 H (75-99) mg/dL Ur Specific [place] (1.001-1.035) Urine Protein (Negative) Urine Glucose (UA) (Negative) Ur Leukocyte Esterase (Negative) Urine WBC (0-5) /hpf Urine Mucus (None) /hpf Assessment and Plan Plan: Impression 1 metastatic cancer probably of a lung origin and I suspect this may be probably a small cell type. The patient has a left infrahilar mass with mediastinal lymphadenopathy, axillary lymphadenopathy and anterior abdominal wall wall masses that are quite multiple and accessible for biopsy. On 12/04/2016, biopsy/a punch biopsy of this skin lesion was done and were still awaiting the final pathology. 2 COPD 3 questionable history of thymoma, status post resection 4 uterine cancer status post hysterectomy 5 hypertension 6 hyperlipidemia 7 generalized debility, weakness, difficulty with mobility, probably all related to underlying metastatic carcinoma Plan 18 final path. Transfer this patient to oncology floor. Condition is stable. Punch biopsy of the skin mass/lesion was done
[2016-12-04 17:05] LABS: Glucose,Whole Blood 214 mg/dL (75-99)
[2016-12-04 20:43] LABS: Glucose,Whole Blood 85 mg/dL (75-99)
--- NOTE | 2016-12-04 21:20 | PN ---
71-year-old is being treated for COPD exacerbation. Patient is saturating well. Can cut down the oxygen, although the patient remains on ( ) liters, which we can cut it down. I will discontinue levofloxacin and patient will be started on doxycycline for possibility of bronchitis. I do not believe patient has pneumonia at this point of time. Patient has probably metastatic cancer with possible mets to the brain and patient is already on systemic steroids. I am awaiting recommendations from oncology regarding the brain mets and patient underwent biopsy of the skin lesions awaiting biopsy results. REVIEW OF SYSTEMS: CARDIOVASCULAR: No chest pain, no orthopnea, no PND, no palpitations. PULMONARY: Denied any shortness of breath. No cough or hemoptysis. GASTROINTESTINAL: No diarrhea, nausea or vomiting. No abdominal pain. Normoactive bowel sounds. NEUROLOGIC: No headaches, no weakness, no numbness. Medications are reviewed. PHYSICAL EXAMINATION: VITAL SIGNS: Temperature 97.9, pulse of 88, respiratory rate of 18, blood pressure is 99/52. Saturating at 100% on 10 liters which we will cut down the oxygen. GENERAL: The patient is alert and oriented x3, not in any acute distress. Well developed, well nourished. HEENT: Pupils are round and equally reacting to light. EOMI. No scleral icterus. No conjunctival pallor. Normocephalic, atraumatic. No pharyngeal erythema. No thyromegaly. CARDIOVASCULAR: S1 and S2 present. No murmurs, rubs, or gallops. PULMONARY: Chest is clear to auscultation, no wheezing or crackles. ABDOMEN: Soft, nontender, nondistended, normoactive bowel sounds. No palpable organomegaly. MUSCULOSKELETAL: No joint swelling or deformity. EXTREMITIES: No cyanosis, clubbing, or pedal edema. NEUROLOGICAL: Gross neurological examination did not reveal any focal deficits. SKIN: No rashes. Laboratory data was reviewed. ASSESSMENT AND PLAN: 1. Shortness of breath probably secondary to chronic obstructive pulmonary disease with acute exacerbation and acute hypercapnic respiratory failure. Patient on systemic steroids inhalation treatments. 2. Possible metastatic cancer and unknown primary. Awaiting biopsy results as mentioned above. 3. Metastatic lesions in the brain. Patient is on systemic steroids at this point of time. 4. Generalized weakness and cachexia probably from cancer. 5. History of thymoma. 6. Hypertension. 7. Hyperlipidemia. PLAN: As mentioned above.
[2016-12-04] MEDS: TEMAZEPAM 15 MG CAP PO PRN (21:22)
[2016-12-04] MEDS: DOXYCYCLINE 50 MG CAP PO SCH (21:22)
[2016-12-04] MEDS: ATORVASTATIN 10 MG TAB PO SCH (21:22)
[2016-12-05] MEDS: methylPREDNISolone SOD SUCCI 125 MG/2 ML VIAL IV SCH ×3 (00:19→12:08)
[2016-12-05 06:07] LABS: Glucose,Whole Blood 101 mg/dL (75-99)
[2016-12-05] MEDS: INSULIN LISPRO (humaLOG) 300 UNIT/3 ML VIAL SQ SCH ×4 (06:09→21:11)
[2016-12-05] MEDS: DOXYCYCLINE 50 MG CAP PO SCH ×2 (07:35→20:48)
--- NOTE | 2016-12-05 10:45 | CDI ---
In responding to this query, please exercise your independent professional judgment. The [facility] Coding Staff and Clinical Documentation Specialists appreciate your assistance in clarifying documentation, maintaining compliance with coding guidelines, accurately documenting patients condition and capturing severity of illness. The fact that a question is asked does not imply that any particular answer is desired or expected. Communication forms are a method of clarifying documentation and are not made part of the Legal Health Record. Thank you in advance for your clarification. Last Revision, September 2015 [facility] [address] [place] [address] Documentation Clarification Form Date: 12/05/2016 10:18:00 AM From: Katey Rivera CCS, CCDS Admit Date: 12/03/2016 1:54:00 AM Patient Name: Mihaela Vital Visit Number: [id number] Discharge Date: Dr. Shay Fleming: 71 yo female, chronic lifelong smoker, being treated for Acute Exacerbation of COPD and possible Bronchitis. Transferred(?) to [facility] from [facility] for skin biopsy (performed bedside by surgeon) for possible metastatic CA with possible metastasis to brain, lung & lymph nodes, possible primary is lung but unknown at this time. History/Risk Factors: 1.5 ppd smoker since age 14, known history of COPD, previous history of Uterine Cancer status post Hysterectomy & possible benign thymoma with no documented physician follow up. Clinical Indicators: Multiple lesions identified. Stock Checker consult: Underweight. Appetite poor: eating 25-50% of meals. Requires oral supplement, has difficulty chewing, wears dentures. Weight: 51.2 kg, Height 5.2. BMI: 20.6. LAB: K 3.4, WBC 18.6 Treatment: Dietary Consult, PT & SW consults, Surgery, Oncology & Pulmonary Consults. Ensure Complete TID. Blood & Sputum cultures, Albuterol INH, IV fluid bolus, IV Zosyn, IV Solumedrol, IV Levaquin, Insulin sl sc sq, O2 4-12L nc. In your professional opinion, can you please clarify if these findings signify one of the following conditions? Mild Protein Malnutrition Mild Protein-Calorie Malnutrition Moderate Protein Malnutrition Moderate Protein-Calorie Malnutrition Severe Protein Malnutrition Severe Protein-Calorie Malnutrition Malnutrition following GI surgery Malnutrition Other condition, please specify Unable to determine Please document in your progress notes and discharge summary in order to capture severity of illness and risk of mortality. Include clinical findings that support your diagnosis. FYI: Press F11 to launch patient chart. Place X here if this finding has no clinical significance, is not applicable or if you are not able to provide any additional documentation. Thank You. IAN
[2016-12-05] MEDS ORDERED: MAGNESIUM HYDROXIDE 2,400 MG/10 ML CUP PO PRN (11:33)
[2016-12-05 11:50] LABS: Glucose,Whole Blood 102 mg/dL (75-99)
--- NOTE | 2016-12-05 14:36 | P.PN ---
Subjective Principal diagnosis: Abdominal wall nodule Patient without new complaints. Pathology pending. Denies shortness of breath. Objective - Vital Signs Vital signs: Vital Signs Temp 97.7 F 12/05/16 11:25 Pulse 75 12/05/16 11:26 Resp 20 12/05/16 11:26 BP 122/60 12/05/16 11:25 Pulse Ox 99 12/05/16 11:25 Intake & Output 12/04/16 12/05/16 12/05/16 18:59 06:59 18:59 Intake Total 867 390 Output Total 200 150 300 Balance 667 -150 90 Weight 51.1 kg Intake: Intake, IV Titration 150 Amount Levofloxacin 750Mg-D5w 150 Pmx 750 mg In Dextrose/ Water 1 150ml.bag @ 100 mls/hr IVPB Q24H [facility] Rx#: [id number] Oral [id number] Output: Urine 200 150 300 Other: Voiding Method Bedside Commode Bedside Commode Bedside Commode # Bowel Movements 0 0 - Exam Incision clean and dry - Labs CBC & Chem 7: 12/04/16 05:54 12/04/16 05:54 Labs: Abnormal Lab Results - Last 24 Hours (Table) 12/04/16 12/05/16 12/05/16 Range/Units 17:03 06:01 11:39 POC Glucose (mg/dL) 214 H 101 H 102 H (75-99) mg/dL Microbiology - Last 24 Hours (Table) 12/04/16 09:25 Gram Stain - Preliminary Sputum Sputum Culture - Preliminary Myla albicans Assessment and Plan (1) Subcutaneous nodules Narrative/Plan: Await pathology results. Status: Acute
--- NOTE | 2016-12-05 14:38 | P.PN ---
Subjective This is a 71-year-old female patient was initially taken to [facility] for generalized body weakness and some shortness of breath. As part of further investigation a CAT scan of the chest was done that showed a left lower lobe/left perihilar pulmonary mass along with mediastinal lymphadenopathy and multifocal left lower lobe lung as pulmonary infiltrates and nodules. There is narrowing of the left lower lobe bronchus. This was very suspicious for an underlying malignancy. In addition, the CAT scan showed a large axillary lymph node and multiple subcutaneous nodules of the breast and superficial to the left scapula raising the concern for possible metastases. There was also some abdominal lymphadenopathy noted. Based on all this, the patient was transferred to [facility] for further investigation with the intention of her having a biopsy for tissue confirmation. 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 She also has a remote history of uterine cancer and she is post-hysterectomy. She smokes a one half pack of cigarettes a day and she has an underlying COPD. Clinically the patient remains very weak. Her appetite is poor. She has no weight loss. She was having exertional dyspnea. No hemoptysis.On examination, the patient was found to have firm nodes or masses over the anterior abdominal wall and I couldn't palpate at least 3 large firm masses that are stuck to the abdominal wall and the abdomen apparently growing over the past few weeks. The patient also has a right axillary mass/lymph node that can be palpated. On 12/04/2016 the patient is being seen in follow-up. As suspected the patient has metastatic carcinoma and we have recommended biopsy of the abdominal masses. The patient underwent a punch biopsy of the mass at the bedside today by the general surgeon. The final path is still pending. Meanwhile the patient does not have any major surgery distress pH is having some late lunch at this point. Hemodynamically stable. No other significant events otherwise over the past 24 hours. We are still waiting for the biopsy. I think the patient can be transferred to oncology floor. On 12/05/2016, the patient is still on the medical surgical floor and she is quite stable. No worsening shortness of breath. Awaiting biopsy results to establish final diagnoses decide on further treatment plan. The patient is tolerating her diet. No nausea vomiting. No chest pain. No abdominal pain. No change in mental status. Objective - Vital Signs Vital signs: Vital Signs Temp 97.7 F 12/05/16 11:25 Pulse 75 12/05/16 11:26 Resp 20 12/05/16 11:26 BP 122/60 12/05/16 11:25 Pulse Ox 99 12/05/16 11:25 Intake & Output 12/04/16 12/05/16 12/05/16 18:59 06:59 18:59 Intake Total 867 390 Output Total 200 150 300 Balance 667 -150 90 Weight 51.1 kg Intake: Intake, IV Titration 150 Amount Levofloxacin 750Mg-D5w 150 Pmx 750 mg In Dextrose/ Water 1 150ml.bag @ 100 mls/hr IVPB Q24H [facility] Rx#: [id number] Oral [id number] Output: Urine 200 150 300 Other: Voiding Method Bedside Commode Bedside Commode Bedside Commode # Bowel Movements 0 0 - Exam Head exam was generally normal. There was no scleral icterus or corneal arcus. Mucous membranes were moist.Neck was supple and without jugular venous distension, thyromegaly, or carotid bruits. Carotids were easily palpable bilaterally. There was no adenopathy. The patient has a firm right axillary lymph node that can be easily palpated that is measuring approximately 2 cm in size. Lung sounds are diminished bilaterally and there is no wheezes overall currently crackles.Cardiac exam revealed the PMI to be normally situated and sized. The rhythm was regular and no extrasystoles were noted during several minutes of auscultation. The first and second heart sounds were normal and physiologic splitting of the second heart sound was noted. There were no murmurs , rubs, clicks, or gallops. Abdominal wall reveals firm masses that are as large as 3-4 cm in size and they are nonpainful urine stuck over the anterior abdominal wall and these are probably metastatic lesions to the abdominal wall. The patient has no significant organomegaly. No direct tenderness. No rebound tenderness or guarding.Examination of the extremities revealed easily palpable radial, femoral and pedal pulses. There was no cyanosis, clubbing or edema. - Labs CBC & Chem 7: 12/04/16 05:54 12/04/16 05:54 Labs: Abnormal Lab Results - Last 24 Hours (Table) 12/04/16 12/05/16 12/05/16 Range/Units 17:03 06:01 11:39 POC Glucose (mg/dL) 214 H 101 H 102 H (75-99) mg/dL Microbiology - Last 24 Hours (Table) 12/04/16 09:25 Gram Stain - Preliminary Sputum Sputum Culture - Preliminary Myla albicans Assessment and Plan Plan: Impression 1 metastatic cancer probably of a lung origin and I suspect this may be probably a small cell type. The patient has a left infrahilar mass with mediastinal lymphadenopathy, axillary lymphadenopathy and anterior abdominal wall wall masses that are quite multiple and accessible for biopsy. On 12/04/2016, biopsy/a punch biopsy of this skin lesion was done and were still awaiting the final pathology. On 12/05/2016, we are still awaiting the path report on the punch biopsy was done off the abdominal wall lesion. The patient's clinical condition remains essentially unchanged. 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 Continue the supportive care. Continue the bronchodilators. Steroids have been tapered.
--- NOTE | 2016-12-05 16:21 | P.PN ---
Subjective Date of service 12-05-16 Progress note being dictated for Dr. Nolasco asthma Interval history: This is a 71-year-old female admitted with shortness of breath , acute respiratory failure ,COPD, possible metastatic CA with metastatic lesions in the brain, primary unknown, and generalized weakness and multiple other medical issues in a patient with ongoing nicotine dependence. States breathing improved from yesterday, Consuming around 50% of tray. Denies nausea or vomiting. No abdominal pain. Biopsy/pathology results of abdominal lesion/ nodules pending. Denies chest pain, palpitations or increasing shortness of breath. Objective - Vital Signs Vital signs: Vital Signs Temp 97.7 F 12/05/16 11:25 Pulse 75 12/05/16 11:26 Resp 20 12/05/16 11:26 BP 122/60 12/05/16 11:25 Pulse Ox 99 12/05/16 11:25 Intake & Output 12/04/16 12/05/16 12/05/16 18:59 06:59 18:59 Intake Total 867 450 Output Total 200 150 300 Balance 667 -150 150 Weight 51.1 kg 51.1 kg Intake: Intake, IV Titration 150 Amount Levofloxacin 750Mg-D5w 150 Pmx 750 mg In Dextrose/ Water 1 150ml.bag @ 100 mls/hr IVPB Q24H [facility] Rx#: [id number] Oral [id number] 450 Output: Urine 200 150 300 Other: Voiding Method Bedside Commode Bedside Commode Bedside Commode # Bowel Movements 0 0 - Exam PHYSICAL EXAM: VITAL SIGNS: As above GENERAL: [Sitting up in bed, cachexic, no acute distress] HEENT: [Pupils equal conjunctiva normal.] NECK: [Supple, no JVD, firm right axillary lymph node] RESPIRATORY EFFORT:[Mildly increased] LUNGS: [Clear to auscultation, no wheezing, no crackles] CARDIOVASCULAR[regular S1 and S2, no murmurs, rubs or gallops] GI: [Abdomen soft, nontender, multiple firm lesions, positive bowel sounds. No guarding, no rigidity] PSYCH: [Alert and oriented -3, mood and affect normal.] NEURO: No focal deficits - Labs CBC & Chem 7: 12/04/16 05:54 12/04/16 05:54 Labs: Abnormal Lab Results - Last 24 Hours (Table) 12/04/16 12/05/16 12/05/16 Range/Units 17:03 06:01 11:39 POC Glucose (mg/dL) 214 H 101 H 102 H (75-99) mg/dL Microbiology - Last 24 Hours (Table) 12/04/16 09:25 Gram Stain - Preliminary Sputum Sputum Culture - Preliminary Myla albicans Assessment and Plan Plan: 1. [Shortness of breath secondary to acute COPD exacerbation, acute hypercapnic respiratory failure]. 2. [Metastatic cancer with metastatic brain lesions, multiple abdominal wall nodules/lesions, primary unknown,. Axillary and mediastinal lymphadenopathy, left infrahilar mass]. 3. [Moderate protein calorie malnutrition]. 4. [Generalized medical debility, weakness and cachexia probably from cancer]. 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 6. [Hypertension]. 7. [Hyperlipidemia]. Plan: Continue on current medication regime , nebulized bronchodilators, steroids, monitoring and symptomatic treatment. Tapering of steroids in progress. Maintain supportive care. Prognosis guarded given complex medical issues. Follow closely with oncology with further recommendations pending pathology results. The impression and plan of care has been dictated as directed. : I performed a H&P examination of this patient and discussed the same with the dictator. I agree with the dictator's note. Any additional findings/opinions/ etc. will be noted.
[2016-12-05 17:30] LABS: Glucose,Whole Blood 155 mg/dL (75-99)
[2016-12-05] MEDS: DEXAMETHASONE 4 MG TAB PO SCH ×2 (18:25→22:42)
[2016-12-05] MEDS: TEMAZEPAM 15 MG CAP PO PRN (20:47)
[2016-12-05] MEDS ORDERED: methylPREDNISolone SOD SUCCI 40 MG/ML 1 ML VIAL IV SCH (21:00)
[2016-12-05 21:06] LABS: Glucose,Whole Blood 131 mg/dL (75-99)
[2016-12-05] MEDS: ATORVASTATIN 10 MG TAB PO SCH (22:43)
[2016-12-05] MEDS: ALPRAZolam 0.25 MG TAB PO PRN (23:42)
[2016-12-06] MEDS: INSULIN LISPRO (humaLOG) 300 UNIT/3 ML VIAL SQ SCH ×2 (05:59→13:13)
[2016-12-06 06:00] LABS: Glucose,Whole Blood 120 mg/dL (75-99)
[2016-12-06] MEDS: DOXYCYCLINE 50 MG CAP PO SCH ×2 (08:37→20:24)
[2016-12-06] MEDS: DEXAMETHASONE 4 MG TAB PO SCH ×3 (08:37→20:24)
[2016-12-06 11:27] LABS: Glucose,Whole Blood 107 mg/dL (75-99)
--- NOTE | 2016-12-06 16:25 | P.PN ---
Subjective Principal diagnosis: metastatic small cell lung cancer Pt seen with family at bedside to discuss diagnosis, treatment options and prognosis. Pt has no acute physical c/o, denies SOB or pain. Objective - Vital Signs Vital signs: Vital Signs Temp 97.6 F 12/06/16 12:00 Pulse 96 12/06/16 16:00 Resp 24 12/06/16 16:00 BP 136/67 12/06/16 12:00 Pulse Ox 95 12/06/16 12:00 Intake & Output 12/05/16 12/06/16 12/06/16 18:59 06:59 18:59 Intake Total 510 440 Output Total 625 100 Balance -115 -100 440 Weight 51.1 kg 52 kg Intake: Oral 510 440 Output: Urine 625 100 Other: Voiding Method Bedside Commode Bedside Commode Bedside Commode # Voids 1 1 # Bowel Movements 1 1 1 - Exam Pt is laying in bed, no distress noted, respirations are even and unlabored. - Labs CBC & Chem 7: 12/04/16 05:54 12/04/16 05:54 Labs: Abnormal Lab Results - Last 24 Hours (Table) 12/05/16 12/05/16 12/06/16 Range/Units 16:59 20:54 05:54 POC Glucose (mg/dL) 155 H 131 H 120 H (75-99) mg/dL 12/06/16 Range/Units 11:11 POC Glucose (mg/dL) 107 H (75-99) mg/dL Microbiology - Last 24 Hours (Table) 12/04/16 09:25 Gram Stain - Final Sputum Sputum Culture - Final Myla albicans Assessment and Plan (1) Subcutaneous nodules Narrative/Plan: Biopsy confirmed SCLC Status: Acute (2) Lung mass Status: Acute (3) SCLC (small cell lung carcinoma) Narrative/Plan: Dr. Lynn discussed diagnosis of SCLC. Pt has extensive disease, she is not a surgical candidate. Findings in the brain are not conclusive so MRI would need to be done to clarify the findings-pt has been empirically started on steroids for metastasis-if brain mets are found WBRT will need to be done prior to starting systemic chemotherapy. It was explained to the family the disease is treatable for some time but not curable. Prognosis is poor overall, 3 month life expectancy without treatment, 10-12 months with treatment if the cancer responds and pt tolerates chemo. Small cell can initially respond very rapidly to treatment and pt can get relief from symptoms and enjoy a better quality of life for a while. Pt and family would like time to discuss what they would like to do. If pt would like to pursue treatment we will order MRI and proceed from there. All questions answered. >50% time spent counseling, coordinating care Status: Acute Time with Patient: Greater than 30
--- NOTE | 2016-12-06 17:25 | P.PN ---
Subjective This is a very pleasant 71-year-old female patient who presented here on 2016 with complaints of increasing shortness of breath. She was a transfer from [facility]. She also had generalized body weakness and significant fatigue. She was also found to have firm nodules or masses in the anterior abdominal wall as well as a late left scapular region. Her chest x- ray revealed a significant left lower lobe/left perihilar pulmonary mass along with mediastinal lymphadenopathy. She has subsequently undergone biopsy of one of the abdominal masses and is positive for metastatic small cell lung cancer. She has been seen and evaluated by Dr. Lynn. A computed tomography scan of the brain was inconclusive and an MRI is needed to determine if there is any metastasis which would require radiation therapy prior to beginning any chemotherapy. Decadron has been initiated. At this point the patient and her son are having further discussion whether they will proceed with any further treatments from here. Presently, she is seen on the selective care unit in follow-up. She is awake and alert in no acute distress. She has a loose nonproductive cough. No chills or night sweats. No hemoptysis. He has been weaned down to 5 L of high flow nasal cannula to maintain O2 saturations in the mid 90s. She's been afebrile. Appetite is poor. Objective - Vital Signs Vital signs: Vital Signs Temp 97 F L 12/06/16 17:10 Pulse 97 12/06/16 17:10 Resp 16 12/06/16 17:10 BP 142/76 12/06/16 17:10 Pulse Ox 95 12/06/16 12:00 Intake & Output 12/05/16 12/06/16 12/06/16 18:59 06:59 18:59 Intake Total 510 440 Output Total 625 100 Balance -115 -100 440 Weight 51.1 kg 52 kg Intake: Oral 510 440 Output: Urine 625 100 Other: Voiding Method Bedside Commode Bedside Commode Bedside Commode # Voids 1 1 # Bowel Movements 1 1 1 - Exam GENERAL EXAM: Somewhat cachectic. Decreased activity. HEAD: Normocephalic. EYES: Normal reaction of pupils, equal size. NOSE: Clear with pink turbinates. THROAT: No erythema or exudates. NECK: No masses, no JVD. CHEST: No chest wall deformity. LUNGS: Equal air entry with few scattered rhonchi basilar crackles more so on the left lung CVS: S1 and S2 normal with no audible murmurs, regular rhythm. Extremities: There is no peripheral edema, no clubbing no cyanosis peripheral pulses are intact. There are multiple palpable nodes in the abdomen and left scapular region right axillary region . - Labs CBC & Chem 7: 12/04/16 05:54 12/04/16 05:54 Labs: Abnormal Lab Results - Last 24 Hours (Table) 12/05/16 12/05/16 12/06/16 Range/Units 16:59 20:54 05:54 POC Glucose (mg/dL) 155 H 131 H 120 H (75-99) mg/dL 12/06/16 Range/Units 11:11 POC Glucose (mg/dL) 107 H (75-99) mg/dL Microbiology - Last 24 Hours (Table) 12/04/16 09:25 Gram Stain - Final Sputum Sputum Culture - Final Myla albicans Assessment and Plan Plan: Impression: #1 Metastatic small cell carcinoma, lung primary. #2 Chronic obstructive pulmonary disease. #3 Questionable history of thymoma, status post resection. #4 Uterine cancer status post hysterectomy. #5 Hypertension. #6 Hyperlipidemia. #7 Overall poor functional performance and generalized debility and weakness secondary to the above-mentioned comorbidities especially the underlying metastatic carcinoma. Plan: The patient was seen and evaluated by Dr. Alan. The patient and her son had discussions with oncology today regarding plan of care. They're suggesting a possible three-month survival without treatment and possible 9-12 months with treatment. If they plan to move forward and MRI of the brain would be conducted to determine if there is any brain metastasis which would require radiation therapy prior to any chemotherapy treatments. We'll await the family' s request. In the interim we'll continue with supportive care. Continue bronchodilators. Continue Decadron. We'll continue to follow make further recommendations based on her clinical status.
--- NOTE | 2016-12-06 17:32 | P.PN ---
Subjective Date of service 12-06-16 Progress note being dictated for Dr. Nolasco asthma Interval history: This is a 71-year-old female admitted with shortness of breath , acute respiratory failure ,COPD, possible metastatic CA with metastatic lesions in the brain, primary unknown and multiple other medical issues. Final pathology of abdominal nodule reporting positive for small cell carcinoma States breathing improved from yesterday, Consuming around 50% of tray. Denies nausea or vomiting. No abdominal pain. . Denies chest pain, palpitations or increasing shortness of breath. Objective - Vital Signs Vital signs: Vital Signs Temp 97 F L 12/06/16 17:10 Pulse 84 12/06/16 17:11 Resp 16 12/06/16 17:11 BP 142/76 12/06/16 17:10 Pulse Ox 95 12/06/16 12:00 Intake & Output 12/05/16 12/06/16 12/06/16 18:59 06:59 18:59 Intake Total 510 800 Output Total 625 100 Balance -115 -100 800 Weight 51.1 kg 52 kg Intake: Oral 510 800 Output: Urine 625 100 Other: Voiding Method Bedside Commode Bedside Commode Toilet # Voids 1 1 # Bowel Movements 1 1 1 - Labs CBC & Chem 7: 12/04/16 05:54 12/04/16 05:54 Labs: Abnormal Lab Results - Last 24 Hours (Table) 12/05/16 12/05/16 12/06/16 Range/Units 16:59 20:54 05:54 POC Glucose (mg/dL) 155 H 131 H 120 H (75-99) mg/dL 12/06/16 Range/Units 11:11 POC Glucose (mg/dL) 107 H (75-99) mg/dL Microbiology - Last 24 Hours (Table) 12/04/16 09:25 Gram Stain - Final Sputum Sputum Culture - Final Myla albicans Assessment and Plan Plan: 1. [Shortness of breath secondary to acute COPD exacerbation, acute hypercapnic respiratory failure]. 2. [Metastatic cancer with metastatic brain lesions, multiple abdominal wall nodules/lesions, primary unknown,. Axillary and mediastinal lymphadenopathy, left infrahilar mass]. Final pathology of abdominal wall nodule positive for small cell carcinoma. 3. [Moderate protein calorie malnutrition]. 4. [Generalized medical debility, weakness and cachexia probably from cancer]. 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 6. [Hypertension]. 7. [Hyperlipidemia]. Plan: Continue on current medication regime , nebulized bronchodilators, steroids, monitoring and symptomatic treatment. Oncology met with family discussing pathology results, options. Prognosis poor. Patient and family discussing options, further treatment pending. Maintain supportive care. Follow closely with oncology. Patient may transfer off telemetry unit to oncology unit. The impression and plan of care has been dictated as directed. : I performed a H&P examination of this patient and discussed the same with the dictator. I agree with the dictator's note. Any additional findings/opinions/ etc. will be noted.
[2016-12-06] MEDS: TEMAZEPAM 15 MG CAP PO PRN (20:24)
[2016-12-06] MEDS: ATORVASTATIN 10 MG TAB PO SCH (20:24)
--- NOTE | 2016-12-06 23:13 | MR ---
EXAMINATION TYPE: MR brain wo/w con DATE OF EXAM: 12/06/2016 7:56 PM COMPARISON: CT December 03, 2016 HISTORY: brain lesions Used Fast Brain Protocol as Pt had difficulty tolerating exam CONTRAST: Standard multiplanar, multisequence MRI departmental protocol utilizing 10 mL intravenous MultiHance gadolinium contrast. FINDINGS: The contrast enhancement pattern is normal. There is no mass or mass effect or evidence of hemorrhage. Multifocal bilateral lockwood radiata and centrum semiovale T2 hyperintensities are noted, entirely non specific but oftentimes representing small vessel change in asymptomatic patients in this age group. The extra-axial compartment is negative. There are multifocal calvarial T2 hyperintensity suspicious for skeletal metastases. Would defer to nuclear medicine bone scan characterization. IMPRESSION: NEGATIVE EXAMINATION FOR FOCAL FINDINGS. NO ACUTE PROCESS.
[2016-12-07] MEDS: ALPRAZolam 0.25 MG TAB PO PRN (02:59)
[2016-12-07] MEDS: IPRATROPIUM-ALBUTEROL 3 ML NEB INHALATION PRN (08:01)
[2016-12-07 08:21] VITALS: RESP 16
[2016-12-07] MEDS: DOXYCYCLINE 50 MG CAP PO SCH ×2 (08:51→19:58)
[2016-12-07] MEDS: DEXAMETHASONE 4 MG TAB PO SCH (08:51)
[2016-12-07] MEDS ORDERED: RX INFO: IV CONTRAST WAS GIVEN 1 EACH MISC MISCELLANE PRN (09:16)
--- NOTE | 2016-12-07 09:43 | P.PN ---
Subjective The patient complains of some increased shortness of breath. Oxygen requirements have increased. He denies any chest pain. She still has some soreness at the site of the skin nodules. No history of nausea or vomiting. Objective - Vital Signs Vital signs: Vital Signs Temp 98.3 F 12/07/16 08:00 Pulse 100 12/07/16 08:15 Resp 16 12/07/16 08:00 BP 138/77 12/07/16 08:00 Pulse Ox 98 12/07/16 08:00 Intake & Output 12/06/16 12/07/16 12/07/16 18:59 06:59 18:59 Intake Total 860 Balance 860 Weight 35 kg 35 kg Intake: Oral 860 Other: Voiding Method Toilet Toilet Toilet # Voids 1 1 # Bowel Movements 1 - Constitutional General appearance: Present: mild distress - EENT Eyes: Present: EOMI, PERRLA ENT: Present: hearing grossly normal, normal oropharynx - Respiratory Respiratory: bilateral: diminished - Cardiovascular Rhythm: regular Heart sounds: normal: S1, S2 - Gastrointestinal General gastrointestinal: Present: normal bowel sounds, soft - Integumentary Integumentary: Present: normal - Neurologic Neurologic: Present: CNII-XII intact - Musculoskeletal Musculoskeletal: Present: generalized weakness, strength equal bilaterally - Psychiatric Psychiatric: Present: A&O x's 3, appropriate affect - Labs CBC & Chem 7: 12/04/16 05:54 12/04/16 05:54 Labs: Abnormal Lab Results - Last 24 Hours (Table) 12/06/16 Range/Units 11:11 POC Glucose (mg/dL) 107 H (75-99) mg/dL Microbiology - Last 24 Hours (Table) 12/04/16 09:25 Gram Stain - Final Sputum Sputum Culture - Final Myla albicans Assessment and Plan (1) SCLC (small cell lung carcinoma) Narrative/Plan: We had an extensive discussion with the patient and her family yesterday, regarding the diagnosis and prognosis. To reiterate, they were advised that the cancer is not curable and the objective of treatment would be prolongation of life and palliation of symptoms. There was also concern for possible brain metastasis, which would affect prognosis further. The patient and her family did decide to proceed with the MRI of the brain. The MRI was reviewed, and did not show any evidence of brain metastasis. There was evidence of possible early metastasis in the skull bones, which does not change her management, in terms of treatment recommendations. Apparently the patient had indicated to nursing earlier today that she was not sure that she wanted active treatment. To me, she indicated however, that she will likely choose active treatment. Usually the treatment would be given as an outpatient. However if she has progressive symptoms related directly to cancer progression in the hospital, we may need to consider starting it inpatient. Status: Acute (2) Dyspnea Narrative/Plan: The patient has had some worsening in her respiratory status somewhat acutely. Examination of the lung appears to be overall unchanged. I did not appreciate significant crackles or wheezing. She denies any chest pain. As MRI of the brain was negative for cerebral metastasis, I will stop Decadron and place her back on Solu-Medrol IV. CTA of the chest will be ordered to rule out pulmonary embolus. She is continuing antibiotics, as well as aerosols poor pulmonary medicine. If CT is negative, I'll defer to the admitting service and probably medicine for further management regarding her dyspnea Status: Acute
--- NOTE | 2016-12-07 10:01 | CT ---
EXAMINATION TYPE: CT angio chest DATE OF EXAM: 12/07/2016 9:47 AM COMPARISON: NONE HISTORY: PE, history of uterine CA CT DLP: 142.8 mGycm CONTRAST: CT chest with contrast and 3D reconstruction with MIP imaging is performed with IV Contrast, patient injected with 42 ml mL of Omnipaque 350. Contrast-enhanced CT of the chest was performed through the course of the pulmonary arteries with carlos g and mediastinal window settings submitted. 3D reconstruction with MIP imaging was also performed. PULMONARY ARTERIES: The pulmonary arteries and their major tributaries are patent. I do not see rito dence for sizable filling defect to suggest pulmonary embolic process. LUNGS: Basilar compressive atelectasis. Bilateral pleural effusions measuring 4.6 cm AP dimension on the left and approximately 3 cm AP dimension on the right. Emphysematous changes noted. MEDIASTINUM/ROBERT: There is left hilar mass which may reflect conglomerate adenopathy and/or underlyin g malignancy which measures 6.7 x 5.5 x 4.5 cm. There is encasement of the left lower lobe bronchus w hich remains patent. Bronchoscopic evaluation recommended. Subcarinal adenopathy measures 1.9 cm shor t axis with precarinal adenopathy measuring 1.8 cm. Left tracheobronchial adenopathy measures approxi mately 1.6 cm. There is also encasement of a patent left lower lobe pulmonary arterial branch. UPPER ABDOMEN: Lobulated appearance of the liver is nonspecific. Other: Subcutaneous mass anterior to the right chest wall and measures 3.4 cm. Additional subcutaneou s nodules partially imaged. Accentuated thoracic kyphosis. IMPRESSION: 1. No evidence for Pulmonary embolism at this time. 2. Left hilar mass with hilar and mediastinal adenopathy. Bronchoscopic evaluation is recommended. 3. Subcutaneous nodules likely reflecting metastatic disease or additional adenopathy. 4. Basilar compressive atelectasis and pleural effusions.
[2016-12-07] MEDS: methylPREDNISolone SOD SUCCI 125 MG/2 ML VIAL IV SCH ×2 (10:06→16:08)
--- NOTE | 2016-12-07 12:56 | P.PN ---
Subjective This is a very pleasant 71-year-old female patient who presented here on 2016 with complaints of increasing shortness of breath. She was a transfer from [facility]. She also had generalized body weakness and significant fatigue. She was also found to have firm nodules or masses in the anterior abdominal wall as well as a late left scapular region. Her chest x- ray revealed a significant left lower lobe/left perihilar pulmonary mass along with mediastinal lymphadenopathy. She has subsequently undergone biopsy of one of the abdominal masses and is positive for metastatic small cell lung cancer. She has been seen and evaluated by Dr. Lynn. A computed tomography scan of the brain was inconclusive and an MRI is needed to determine if there is any metastasis which would require radiation therapy prior to beginning any chemotherapy. Decadron has been initiated. At this point the patient and her son are having further discussion whether they will proceed with any further treatments from here. Presently, she is seen on the selective care unit in follow-up. She is awake and alert in no acute distress. She has a loose nonproductive cough. No chills or night sweats. No hemoptysis. He has been weaned down to 5 L of high flow nasal cannula to maintain O2 saturations in the mid 90s. She's been afebrile. Appetite is poor. On 12/07/2016 I'm seeing this patient in follow-up. Diagnosis has been established and the patient has small cell lung cancer. MRI of the brain was completed and there is no evidence of any TRAFFIC CHECKER metastases. The patient's CT of the chest showed no evidence of any pulmonary embolism. The left lung mass was again visualized along with extensive mediastinal lymphadenopathy and there was also small bilateral pleural effusion and adrenal metastases. Obviously this patient has metastatic small cell lung cancer. She is quite debilitated. I'm not sure she'll be good candidate for systemic chemotherapy however this is a discussion that needs to be further down with oncology. Case management is on the case. There are intentions of taking this patient to [facility]. Objective - Vital Signs Vital signs: Vital Signs Temp 98.3 F 12/07/16 08:00 Pulse 100 12/07/16 08:15 Resp 16 12/07/16 08:00 BP 138/77 12/07/16 08:00 Pulse Ox 98 12/07/16 08:00 Intake & Output 12/06/16 12/07/16 12/07/16 18:59 06:59 18:59 Intake Total 860 Balance 860 Weight 35 kg 35 kg Intake: Oral 860 Other: Voiding Method Toilet Toilet Toilet # Voids 1 2 # Bowel Movements 1 - Exam Head exam was generally normal. There was no scleral icterus or corneal arcus. Mucous membranes were moist.Neck was supple and without jugular venous distension, thyromegaly, or carotid bruits. Carotids were easily palpable bilaterally. There was no adenopathy. The patient has a firm right axillary lymph node that can be easily palpated that is measuring approximately 2 cm in size. Lung sounds are diminished bilaterally and there is no wheezes overall currently crackles.Cardiac exam revealed the PMI to be normally situated and sized. The rhythm was regular and no extrasystoles were noted during several minutes of auscultation. The first and second heart sounds were normal and physiologic splitting of the second heart sound was noted. There were no murmurs , rubs, clicks, or gallops. Abdominal wall reveals firm masses that are as large as 3-4 cm in size and they are nonpainful urine stuck over the anterior abdominal wall and these are probably metastatic lesions to the abdominal wall. The patient has no significant organomegaly. No direct tenderness. No rebound tenderness or guarding.Examination of the extremities revealed easily palpable radial, femoral and pedal pulses. There was no cyanosis, clubbing or edema. - Labs CBC & Chem 7: 12/04/16 05:54 12/04/16 05:54 Labs: Microbiology - Last 24 Hours (Table) 12/04/16 09:25 Gram Stain - Final Sputum Sputum Culture - Final Myla albicans Assessment and Plan Plan: Impression 1 metastatic small cell lung cancer with a left lung mass, extensive mucin lymphadenopathy, adrenal metastases, anterior abdominal wall masses. MRI of the brain shows no TRAFFIC CHECKER metastases. 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 Discharge planning is in progress. Systemic chemotherapy if the patient is found to be a candidate for that. Overall prognosis poor. She understands that she has metastatic aggressive small cell lung cancer at this point. May need to arrange home O2 for this patient in addition. Steroids will be tapered at a time of discharge.
[2016-12-07] MEDS: IPRATROPIUM-ALBUTEROL 3 ML NEB INHALATION SCH ×3 (13:03→19:08)
[2016-12-07 15:43] VITALS: BP 137/65; TEMP 98.4
[2016-12-07 19:11] VITALS: PULSE 88
[2016-12-07] MEDS: TEMAZEPAM 15 MG CAP PO PRN (19:58)
--- NOTE | 2016-12-07 21:37 | DS ---
DATE OF ADMISSION: 12/03/2016 DATE OF DISCHARGE: 12/07/2016 HOSPITAL COURSE: Ms. Vital is a 71-year-old female with past medical history of uterine cancer, COPD, hypertension, hyperlipidemia, thymoma, who was transferred from [facility], as there was concern of left lower lobe perihilar pulmonary mass with mediastinal lymphadenopathy. Patient was having shortness of breath that has been progressively worsening and the lung mass was concerning for malignant lung cancer and so she also underwent a CT scan of her abdomen and pelvis showing multiple metastatic lesions consistent with metastatic disease, so oncology, Dr. Lynn, has been consulted, who did see the patient and ordered a brain MRI. The brain MRI was showing no focal findings, so eventually the plan was discussed with treatment members that the cancer is not curable and the objective of the treatment would be prolongation in life and palliation of symptoms, but the family was really not convinced with our advice and demanded that they be transferred to [facility], as it is closer to their house and also that they would need a second opinion for this lung mass. I spoke with Dr. Daniels at [facility], who accepted the patient, so the patient is being transferred to that facility. forest worker was actively involved and patient's family members were explained the process. The patient is being transferred. DISCHARGE DIAGNOSES: 1. Possible metastatic lung cancer. Primary is still unknown. Patient underwent a biopsy of the subcutaneous lesions and that is also pending. 2. Shortness of breath, most likely secondary to #1. 3. 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 4. History of thymoma. 5. Hypertension. 6. Hyperlipidemia Patient's discharge medications: 1. [place] 5/325, 1 tablet p.r.n. every 6 hours for pain. 2. DuoNeb breathing treatments q.4 hours. 3. Albuterol inhalations q.4 hours. 4. Xanax 0.25 mg p.o. 3 times a day for anxiety. 5. Lipitor 10 mg p.o. q.h.s. 6. Doxycycline 100 mg p.o. b.i.d. 7. Milk of magnesia 2100 mg p.o. daily. 8. Solu-Medrol 60 mg IV q.8 hours. 9. Restoril 15 mg p.o. q.h.s. for insomnia. For transfer, the patient is being transferred to [facility] and Dr. Daniels has accepted the patient. More than 45 minutes spent toward the discharge of the patient.
== END 2016-12-07 20:35 | disposition short-term general hospital (02) | DRG 180 ==
LOC: EC 23:33 → 6SEL 12-03 01:54 → 5ONC 12-07 05:58
PROVIDERS: ADMIT Hospitalist; ATTEND Hospitalist
PROC: 0JB83ZX Excision of Abdomen Subcutaneous Tissue and Fascia, Percutaneous Approach, Diagnostic (ICD-10-PCS; principal; 2016-12-03)
DX: C34.90 Malignant neoplasm of unspecified part of unspecified bronchus or lung (principal); J18.9 Pneumonia, unspecified organism; R64 Cachexia; J96.02 Acute respiratory failure with hypercapnia; C79.2 Secondary malignant neoplasm of skin; J96.01 Acute respiratory failure with hypoxia; C79.31 Secondary malignant neoplasm of brain; C79.70 Secondary malignant neoplasm of unspecified adrenal gland; J44.0 Chronic obstructive pulmonary disease with (acute) lower respiratory infection; J90 Pleural effusion, not elsewhere classified; J44.1 Chronic obstructive pulmonary disease with (acute) exacerbation; Z85.42 Personal history of malignant neoplasm of other parts of uterus; E78.5 Hyperlipidemia, unspecified; E87.6 Hypokalemia; F17.210 Nicotine dependence, cigarettes, uncomplicated; F41.9 Anxiety disorder, unspecified; G47.00 Insomnia, unspecified; I10 Essential (primary) hypertension; J45.909 Unspecified asthma, uncomplicated; Z79.899 Other long term (current) drug therapy; Z85.828 Personal history of other malignant neoplasm of skin; Z90.710 Acquired absence of both cervix and uterus
CPT/HCPCS: 36415; 70460; 70553; 71020; 71275; 74177; 80048; 80053; 81001; 82550; 82553; 83036; 83605; 84484; 85025; 85027; 87040; 87070; 87205; 88305; 88341; 88342; 93005; 94640; 96365; 96366; 96375; 99285